=== PATIENT | male | born 1985 | race Two or more races ===

== ENCOUNTER 2024-05-20 16:16 | Inpatient (IN) | payer BC ==
[~2024-05-20] VITALS: Ht 180.3 cm; Wt 83.0 kg
[2024-05-20 17:50] VITALS: BP 108/63; PULSE 82; RESP 18; TEMP 97.8; O2SAT 98
[2024-05-20] MEDS ORDERED: ACETAMINOPHEN 325 MG TABLET PO PRN (18:15)
[2024-05-20] MEDS ORDERED: MAGNESIUM HYDROXIDE SUSPENSION 30 ML UDCUP PO PRN (18:45)
[2024-05-20] MEDS ORDERED: BISACODYL 10 MG RECTAL RECTAL SUPPOSITORY PR PRN (18:45)
[2024-05-20 19:58] VITALS: BP 120/74; PULSE 86; RESP 18; TEMP 97.7; O2SAT 96
[2024-05-20] MEDS: ETHYL ALCOHOL 62% ANTISEPTIC NASAL SANITIZER 0.6 ML AMPUL NASAL SCH (20:44)
[2024-05-20] MEDS: VALPROIC ACID 250 MG CAPSULE PO SCH (20:44)
[2024-05-20] MEDS: MELATONIN 3 MG TABLET PO SCH (20:45)
[2024-05-20] MEDS: APIXABAN 5 MG TABLET PO SCH (20:45)
[2024-05-20] MEDS: TraZODone HCL 150 MG TABLET PO SCH (20:46)
[2024-05-20] MEDS: QUEtiapine FUMARATE 100 MG TABLET PO SCH (20:46)
[2024-05-20] MEDS: PROPRANOLOL HCL 20 MG TABLET PO SCH (20:46)
[2024-05-20] MEDS: SENNOSIDES 8.6 MG TABLET PO SCH (20:47)
[2024-05-20] MEDS: GABAPENTIN 300 MG CAPSULE PO SCH (20:47)
[2024-05-20] MEDS ORDERED: MELATONIN 5 MG TABLET PO SCH (21:00)
[2024-05-21 00:29] VITALS: O2SAT 96
[2024-05-21 08:00] VITALS: BP 109/76; PULSE 79; RESP 17; TEMP 98.6; O2SAT 98
[2024-05-21] MEDS: POLYETHYLENE GLYCOL 3350 17 GM PACKET PO SCH (08:24)
[2024-05-21] MEDS: CHOLECALCIFEROL (VIT D3) 1,000 UNITS [25 MCG] TABLET PO SCH (08:25)
[2024-05-21] MEDS: MULTIVITAMINS WITH MINERALS, THERAPEUTIC TABLET PO SCH (08:25)
[2024-05-21] MEDS: AMANTADINE HCL 100 MG CAPSULE PO SCH (08:25)
[2024-05-21] MEDS: VALPROIC ACID 250 MG CAPSULE PO SCH (08:25)
[2024-05-21] MEDS: QUEtiapine FUMARATE 25 MG TABLET PO SCH (08:25)
[2024-05-21 08:49] LABS: EOSINOPHILS % (AUTO) 2.8 % (1.0-6.0); HEMATOCRIT 43.3 % (41-53); HEMOGLOBIN 14.5 g/dL (13.5-17.5); LYMPHOCYTES # (AUTO) 1.3 K/uL (1.0-4.8); LYMPHOCYTES % (AUTO) 31.6 % (22.0-44.0); MEAN CORPUSCULAR HEMOGLOBIN 29.1 pg (26.0-34.0); MEAN CORPUSCULAR HGB CONC 33.4 G/dL (31.0-37.0); MEAN CORPUSCULAR VOLUME 87 fL (80-100); MONOCYTES # (AUTO) 0.4 K/uL (0.1-1.0); MONOCYTES % (AUTO) 9.4 % (2.0-9.0); NEUTROPHILS # (AUTO) 2.2 K/uL (1.8-7.7); NEUTROPHILS % (AUTO) 53.2 % (40.0-70.0); PLATELET COUNT (AUTO) 195 K/uL (150-450); RED BLOOD CELL COUNT(AUTO) 4.97 MIL/uL (4.50-5.90); WHITE BLOOD COUNT (AUTO) 4.1 K/uL (4.5-11.0)
[2024-05-21 09:19] LABS: ALANINE AMINOTRANSFERASE 28 U/L (12-78); ALBUMIN 3.2 g/dL (3.4-5.0); ALKALINE PHOSPHATASE 156 U/L (46-116); ANION GAP 8 mmol/L (8-16); ASPARTATE AMINOTRANSFERASE 19 U/L (15-37); BILIRUBIN,TOTAL 0.3 mg/dL (0.1-1.0); CALCIUM, TOTAL 9.1 mg/dL (8.8-10.5); CARBON DIOXIDE 28 mmol/L (22-29); CHLORIDE 103 mmol/L (98-107); CREATININE 0.62 mg/dL (0.60-1.30); GLOMERULAR FILTR. RATE CALC > 60 mL/min (>60); GLUCOSE,RANDOM 110 mg/dL (70-110); POTASSIUM 3.8 mmol/L (3.5-5.1); SODIUM SERUM 139 mmol/L (136-145); TOTAL PROTEIN, SERUM 6.9 g/dL (6.4-8.2); UREA NITROGEN, BLOOD 14 mg/dL (7-18)
[2024-05-21 11:53] LABS: VALPROIC ACID 51 mcg/mL (50-100)
[2024-05-21 20:00] VITALS: BP 124/79; PULSE 89; RESP 20; TEMP 98.2; O2SAT 96
[2024-05-21] MEDS: QUEtiapine FUMARATE 100 MG TABLET PO SCH (21:20)
[2024-05-22] MEDS ORDERED: MELA3TAB89 PO (02:25)
[2024-05-22] MEDS ORDERED: ACET-2247 PO (02:25)
[2024-05-22] MEDS ORDERED: SENN-376 PO (02:25)
[2024-05-22] MEDS ORDERED: VALP250C48 PO ×2 (02:25)
[2024-05-22] MEDS ORDERED: PROP20TA18 PO (02:25)
[2024-05-22] MEDS ORDERED: CHOL25TA4 PO (02:25)
[2024-05-22] MEDS ORDERED: GABA-1181 PO (02:25)
[2024-05-22] MEDS ORDERED: APIX5TAB PO (02:25)
[2024-05-22] MEDS ORDERED: AMAN-24 PO (02:25)
[2024-05-22] MEDS ORDERED: TRAZ150T80 PO (02:25)
[2024-05-22] MEDS ORDERED: MULT-1303 PO (02:25)
[2024-05-22] MEDS ORDERED: QUET100T PO (02:25)
[2024-05-22 08:22] VITALS: BP 106/57; PULSE 77; RESP 18; TEMP 97.5; O2SAT 97
[2024-05-22 20:05] VITALS: BP 114/71; PULSE 94; RESP 18; TEMP 98; O2SAT 97
[2024-05-22 20:15] VITALS: O2SAT 97
[2024-05-22] MEDS: PROPRANOLOL HCL 10 MG TABLET PO SCH (20:41)
[2024-05-22] MEDS: QUEtiapine FUMARATE 25 MG TABLET PO SCH (20:42)
[2024-05-23 08:15] VITALS: BP 114/68; PULSE 74; RESP 19; TEMP 97.6; O2SAT 99
[2024-05-23 09:09] VITALS: O2SAT 99
[2024-05-23 20:00] VITALS: BP 111/58; PULSE 91; RESP 18; TEMP 97.8; O2SAT 96
[2024-05-23] MEDS: VALPROIC ACID 250 MG CAPSULE PO SCH (21:44)
[2024-05-23] MEDS: QUEtiapine FUMARATE 25 MG TABLET PO SCH (21:48)
[2024-05-24 08:10] VITALS: BP 108/74; PULSE 103; RESP 18; TEMP 98; O2SAT 99
[2024-05-24 15:26] VITALS: O2SAT 99
[2024-05-24] MEDS: GABAPENTIN 300 MG CAPSULE PO SCH (16:23)
[2024-05-24 20:00] VITALS: BP 105/87; PULSE 95; RESP 20; TEMP 98.1; O2SAT 96
[2024-05-24] MEDS: QUEtiapine FUMARATE 25 MG TABLET PO SCH (20:53)
[2024-05-25 08:05] VITALS: BP 122/82; PULSE 92; RESP 18; TEMP 97.7; O2SAT 96
[2024-05-25 20:55] VITALS: BP 106/73; PULSE 91; RESP 18; TEMP 97.7; O2SAT 96
[2024-05-26 01:33] VITALS: O2SAT 96
[2024-05-26 07:55] VITALS: BP 114/70; PULSE 84; RESP 20; TEMP 98.1; O2SAT 95
[2024-05-26 14:06] LABS: CANDIDA AURIS PCR,SURVEILLANCE Not Detected C(t) (Not Detectd)
[2024-05-26 19:46] VITALS: BP 116/57; PULSE 78; RESP 18; TEMP 97.7; O2SAT 97
[2024-05-26 22:27] VITALS: O2SAT 97
[2024-05-27 08:00] VITALS: BP 122/71; PULSE 71; RESP 18; TEMP 97.9; O2SAT 95
[2024-05-27 20:00] VITALS: BP 116/73; PULSE 94; RESP 18; TEMP 97.5; O2SAT 98
[2024-05-27] MEDS: TraZODone HCL 100 MG TABLET PO SCH (20:28)
[2024-05-28 08:00] VITALS: BP 112/67; PULSE 97; RESP 18; TEMP 97.9; O2SAT 97
[2024-05-28 20:17] VITALS: BP 116/63; PULSE 89; RESP 18; TEMP 97.7; O2SAT 96
[2024-05-29 02:44] VITALS: O2SAT 96
[2024-05-29 06:56] LABS: HEMATOCRIT 42.8 % (41-53); HEMOGLOBIN 14.6 g/dL (13.5-17.5); LYMPHOCYTES # (AUTO) 1.7 K/uL (1.0-4.8); LYMPHOCYTES % (AUTO) 43.5 % (22.0-44.0); MEAN CORPUSCULAR HEMOGLOBIN 29.3 pg (26.0-34.0); MEAN CORPUSCULAR VOLUME 86 fL (80-100); MONOCYTES # (AUTO) 0.4 K/uL (0.1-1.0); MONOCYTES % (AUTO) 11.7 % (2.0-9.0); NEUTROPHILS # (AUTO) 1.5 K/uL (1.8-7.7); NEUTROPHILS % (AUTO) 38.8 % (40.0-70.0); PLATELET COUNT (AUTO) 209 K/uL (150-450); RED BLOOD CELL COUNT(AUTO) 4.97 MIL/uL (4.50-5.90); RED CELL DISTRIBUTION WIDTH 13.9 % (11.5-14.5); WHITE BLOOD COUNT (AUTO) 3.8 K/uL (4.5-11.0)
[2024-05-29 07:10] LABS: ANION GAP 3 mmol/L (8-16); CALCIUM, TOTAL 8.9 mg/dL (8.8-10.5); CARBON DIOXIDE 30 mmol/L (22-29); CHLORIDE 105 mmol/L (98-107); CREATININE 0.52 mg/dL (0.60-1.30); GLOMERULAR FILTR. RATE CALC > 60 mL/min (>60); GLUCOSE,RANDOM 87 mg/dL (70-110); POTASSIUM 3.9 mmol/L (3.5-5.1); SODIUM SERUM 138 mmol/L (136-145); UREA NITROGEN, BLOOD 18 mg/dL (7-18)
[2024-05-29 08:00] VITALS: O2SAT 98
[2024-05-29 08:10] VITALS: BP 128/75; PULSE 74; RESP 17; TEMP 99; O2SAT 98
[2024-05-29 20:00] VITALS: BP 112/88; PULSE 90; RESP 18; TEMP 98.2; O2SAT 95
[2024-05-29] MEDS: VALPROIC ACID 250 MG CAPSULE PO SCH (20:40)
[2024-05-30 09:01] VITALS: BP 142/85; PULSE 97; RESP 16; TEMP 97.9; O2SAT 96
[2024-05-30 09:18] VITALS: O2SAT 96
[2024-05-30 09:40] VITALS: BP 121/59; PULSE 110; RESP 16; O2SAT 97
[2024-05-30 20:00] VITALS: BP 101/75; PULSE 94; RESP 18; RESP 20; TEMP 98.3; O2SAT 95
[2024-05-30] MEDS: TraZODone HCL 50 MG TABLET PO SCH (20:47)
[2024-05-31 08:00] VITALS: BP 126/74; PULSE 83; RESP 20; TEMP 98; O2SAT 96
[2024-05-31 09:47] VITALS: BP 126/74; PULSE 83; RESP 20; O2SAT 96
[2024-05-31 19:35] VITALS: BP 115/63; PULSE 91; RESP 18; TEMP 97.4; O2SAT 97
[2024-05-31 23:09] VITALS: BP 115/63; PULSE 91; RESP 18; TEMP 97.4; O2SAT 97
[2024-06-01 01:00] VITALS: O2SAT 97
[2024-06-01 08:00] VITALS: BP 134/82; PULSE 95; RESP 18; TEMP 98.3; O2SAT 96
[2024-06-01 09:56] VITALS: BP 134/82; PULSE 95; RESP 18; TEMP 98.3; O2SAT 95
[2024-06-01 20:02] VITALS: BP 109/65; PULSE 89; RESP 18; TEMP 97.7; O2SAT 97
[2024-06-01 20:38] VITALS: BP 109/65; PULSE 89; RESP 18; TEMP 97.7; O2SAT 97
[2024-06-01 20:55] VITALS: O2SAT 97
[2024-06-02 08:17] VITALS: BP 107/66; PULSE 87; RESP 18; TEMP 97.8; O2SAT 98
[2024-06-02 09:59] VITALS: O2SAT 98
[2024-06-02] MEDS ORDERED: GABA-1181 PO (10:04)
[2024-06-02] MEDS ORDERED: MULT-1303 PO (10:04)
[2024-06-02] MEDS ORDERED: TRAZ-252 PO (10:04)
[2024-06-02] MEDS ORDERED: APIX5TAB PO (10:04)
[2024-06-02] MEDS ORDERED: CHOL25TA4 PO (10:04)
== END 2024-06-02 17:53 | disposition home or self-care (01) | DRG 963 ==
LOC: 2WR 17:57
PROVIDERS: ADMIT Physical Medicine & Rehabilitation; ATTEND Physical Medicine & Rehabilitation
DX: S06.5X0A Traumatic subdural hemorrhage without loss of consciousness, initial encounter (principal); J96.90 Respiratory failure, unspecified, unspecified whether with hypoxia or hypercapnia; S82.201C Unspecified fracture of shaft of right tibia, initial encounter for open fracture type IIIA, IIIB, or IIIC; S22.42XA Multiple fractures of ribs, left side, initial encounter for closed fracture; E46 Unspecified protein-calorie malnutrition; S82.142A Displaced bicondylar fracture of left tibia, initial encounter for closed fracture; N17.9 Acute kidney failure, unspecified; S02.19XA Other fracture of base of skull, initial encounter for closed fracture; J98.2 Interstitial emphysema; G83.24 Monoplegia of upper limb affecting left nondominant side; E55.9 Vitamin D deficiency, unspecified; F14.10 Cocaine abuse, uncomplicated; S92.001A Unspecified fracture of right calcaneus, initial encounter for closed fracture; M21.371 Foot drop, right foot; S82.401A Unspecified fracture of shaft of right fibula, initial encounter for closed fracture; X58.XXXA Exposure to other specified factors, initial encounter; Z74.09 Other reduced mobility; R26.9 Unspecified abnormalities of gait and mobility; R41.89 Other symptoms and signs involving cognitive functions and awareness; R45.1 Restlessness and agitation; W13.1XXA Fall from, out of or through bridge, initial encounter; R53.1 Weakness; S06.6X0A Traumatic subarachnoid hemorrhage without loss of consciousness, initial encounter; F32.A Depression, unspecified; Z93.0 Tracheostomy status; Y93.89 Activity, other specified; Z79.01 Long term (current) use of anticoagulants; Y92.89 Other specified places as the place of occurrence of the external cause; Y99.8 Other external cause status; Z86.718 Personal history of other venous thrombosis and embolism; Z87.820 Personal history of traumatic brain injury; Z68.25 Body mass index [BMI] 25.0-25.9, adult
CPT/HCPCS: 70551; 80048; 80053; 80164; 85025; 87081; 87481; 92507; 92523; 97110; 97112; 97116; 97163; 97167; 97530; 97535; 99366